=== PATIENT | female | born 1935 | race Caucasian/White ===

== ENCOUNTER → 2016-07-24 | Outpatient (CLI) | payer MEDICARE ==
--- NOTE | 2016-07-24 17:32 | REP ---
Lumbar spine five views: Comparison 12/15/2014. Vertebral body heights and alignment are normal. There is moderate degenerative disc disease at L1-2 and L3-4. There is no spondylolysis or spondylolisthesis. There is moderate facet osteoarthritis of the lower lumbar levels. The pedicles and sacroiliac articulations are unremarkable. There is a large mottled calcification superimposed over the left iliac wing. By CT (07/17/2013) this is an injection granuloma in the left buttocks. Signed by Quinton Oliva MD 07/24/2016 05:24 P
== END ==
LOC: M WUC 15:45
PROVIDERS: ATTEND Physician Assistant
DX: M54.5 Low back pain (principal)

== ENCOUNTER → 2016-09-26 | Outpatient (REF) | payer MEDICARE ==
[2016-09-28 09:55] LABS: VITAMIN B12 LEVEL 253 PG/ML (247-911)
[2016-09-28 14:16] LABS: Lyme Disease IgG/IgM Antibodie <0.91 ISR (0.00-0.90); Lyme Disease IgM Ab Quantitati <0.80 index (0.00-0.79)
== END ==
LOC: M LAB REF 16:54
PROVIDERS: ATTEND Nurse Practitioner Family
DX: M79.1 Myalgia (principal); L29.8 Other pruritus; R53.83 Other fatigue

== ENCOUNTER → 2016-10-18 | Outpatient (CLI) | payer MEDICARE ==
[~2016-10-18] MED LIST: ALEV220C2 PO; AMBI5TAB PO; LEVO100T5 PO; MYRB25TA PO; ROPI0.25 PO; VITA200015 PO
[2016-10-18 12:05] LABS: MEAN CORPUSCULAR HEMOGLOBIN 29.5 pg (27.0-33.0); MEAN CORPUSCULAR HGB CONC 32.6 g/dl (32.0-36.5); MEAN CORPUSCULAR VOLUME 90.6 fl (80.0-96.0); RED CELL DISTRIBUTION WIDTH 12.5 % (11.5-14.5); WHITE BLOOD COUNT 7.8 K/mm3 (4.0-10.0)
[2016-10-18 12:15] LABS: INR 0.99
[2016-10-18 12:30] LABS: ALBUMIN 4.2 GM/DL (3.2-5.2); ALKALINE PHOSPHATASE 48 U/L (45-117); ALT/SGPT 40 U/L (12-78); ANION GAP 8 MEQ/L (8-16); AST/SGOT 26 U/L (15-37); BILIRUBIN,TOTAL 0.8 MG/DL (0.2-1.0); BLOOD UREA NITROGEN 23 MG/DL (7-18); CALCIUM LEVEL 9.5 MG/DL (8.8-10.2); CARBON DIOXIDE LEVEL 27 MEQ/L (21-32); CHLORIDE LEVEL 107 MEQ/L (98-107); GLOMERULAR FILTRATION RATE > 60.0 (>39); GLUCOSE, FASTING 118 MG/DL (83-110); POTASSIUM SERUM 4.3 MEQ/L (3.5-5.1); SODIUM LEVEL 142 MEQ/L (136-145); TOTAL PROTEIN 7.2 GM/DL (6.4-8.2)
--- NOTE | 2016-10-18 12:39 | REP ---
PA and lateral chest: Comparison is a 2014. The lung sanchez are clear. The cardiac size is normal The nick, mediastinum, and bony thorax are unremarkable. Impression: Negative PA and lateral chest. There is no interval change. Signed by Quinton Oliva MD 10/18/2016 12:31 P
--- NOTE | 2016-10-18 18:59 | ECGEPIP ---
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
== END ==
LOC: M ADMPAT 09:17
PROVIDERS: ATTEND Orthopaedic Surgery
DX: Z01.818 Encounter for other preprocedural examination (principal); M17.11 Unilateral primary osteoarthritis, right knee; Z79.899 Other long term (current) drug therapy

== ENCOUNTER → 2016-10-28 | Outpatient (CLI) | payer MEDICARE ==
--- NOTE | 2016-11-01 09:21 | SLEEPCENT ---
DATE OF STUDY: 10/28/2016 ORDERING PROVIDER: OUSMANE Boyer Nocturnal polysomnography was performed for evaluation of sleep apnea syndrome symptoms in this patient with nonrestorative sleep. 7 hours and 15 minutes of data were reviewed. There were 268 minutes of sleep identified. Sleep latency was mildly prolonged at 57 minutes. Rapid eye movement (REM) latency was prolonged at 183 minutes. Sleep architecture showed poor progression and fragmentation. Two REM periods were appreciated. The overall sleep efficiency was 63%. The patient's electrocardiogram (EKG) showed a sinus rhythm with an average heart rate of 64 beats per minute. Electroencephalogram (EEG) showed normal waveforms sleep and awake. There were 74 respiratory events identified of 10 seconds in duration or greater for an apnea-hypopnea index at 16.5. The events were primarily obstructive. Occasional mixed and central apneas were noted. Events were not exclusive to sleep stage nor body posture. Arousals from respiratory events occurred 5.4 times per hour. Oxygen desaturations were seen into the 80s. There was some limb activity, but arousals from limb events were few. Remaining measures of sleep physiology were normal. IMPRESSION: Obstructive sleep apnea syndrome (G47.33). Apnea-hypopnea index 16.5. RECOMMENDATION: The patient should be encouraged to return to the sleep disorder center for pressure therapy. In the interim, alcohol and sedative avoidance should be practiced and caution exercised during the operation of motor vehicles.
== END ==
LOC: M SLEEP 19:29
PROVIDERS: ATTEND Nurse Practitioner Adult Health
DX: G47.30 Sleep apnea, unspecified (principal)

== ENCOUNTER → 2016-11-09 | Outpatient (CLI) | payer MEDICARE ==
--- NOTE | 2016-11-11 05:07 | SLEEPCENT ---
DATE OF PROCEDURE: 11/09/2016 ORDERED BY: Kathy Siddiqui NP Nocturnal polysomnography was performed for the titration of pressure therapy in this patient with obstructive sleep apnea syndrome, apnea hypopnea index 16.5. For testing, the patient was fit with a ResMed Mirage Quattro full face mask of small size. 4 cm of water pressure were applied to the circuit and the lights were extinguished. 7 hours and 54 minutes of data were reviewed. There were 144 minutes of sleep identified. Sleep latency was prolonged at 215 minutes. Rapid eye movement (REM) latency was further prolonged at 225 minutes. Sleep architecture was poor with 1 REM period late in the study. Overall sleep efficiency was only 31% due to periods of wake after sleep onset. The patient's electrocardiogram (EKG) showed a sinus rhythm with an average heart rate of 70 beats per minute. Electroencephalogram (EEG) showed normal waveforms for awake and sleep. Respiratory events were found best palliated during this test with a pressure therapy of 11 cm of water with which the patient slept through REM without respiratory event or oxygen desaturation late in the study. Some limb movements appreciated early resolved and oxygen saturations were good with CPAP at 11. IMPRESSION: Obstructive sleep apnea syndrome (G47.33). RECOMMENDATION: Nightly use of pressure therapy 11 cm of water.
== END ==
LOC: M SLEEP 19:29
PROVIDERS: ATTEND Nurse Practitioner Adult Health
DX: G47.33 Obstructive sleep apnea (adult) (pediatric) (principal)

== ENCOUNTER → 2017-01-24 | Outpatient (CLI) | payer MEDICARE ==
[~2017-01-24] MED LIST changes: +AUGM500T34 PO; +COUM; +COUM10TA PO; +COUM2.5T17 PO; +MORP15TASA PO; +PERC5TAB12 PO
[2017-01-24 10:56] LABS: MEAN CORPUSCULAR HEMOGLOBIN 30.8 pg (27.0-33.0); MEAN CORPUSCULAR HGB CONC 33.8 g/dl (32.0-36.5); MEAN CORPUSCULAR VOLUME 91.2 fl (80.0-96.0); RED CELL DISTRIBUTION WIDTH 13.2 % (11.5-14.5); WHITE BLOOD COUNT 7.2 K/mm3 (4.0-10.0)
[2017-01-24 11:22] LABS: INR 0.88
[2017-01-24 11:37] LABS: ALBUMIN 3.9 GM/DL (3.2-5.2); ALBUMIN/GLOBULIN RATIO 1.18 (1.00-1.93); ALKALINE PHOSPHATASE 48 U/L (45-117); ALT/SGPT 34 U/L (12-78); ANION GAP 9 MEQ/L (8-16); AST/SGOT 14 U/L (15-37); BILIRUBIN,TOTAL 0.7 MG/DL (0.2-1.0); BLOOD UREA NITROGEN 19 MG/DL (7-18); CALCIUM LEVEL 9.3 MG/DL (8.8-10.2); CARBON DIOXIDE LEVEL 27 MEQ/L (21-32); CHLORIDE LEVEL 107 MEQ/L (98-107); GLOMERULAR FILTRATION RATE > 60.0 (>32); GLUCOSE, FASTING 103 MG/DL (83-110); POTASSIUM SERUM 4.4 MEQ/L (3.5-5.1); SODIUM LEVEL 143 MEQ/L (136-145); TOTAL PROTEIN 7.2 GM/DL (6.4-8.2)
--- NOTE | 2017-01-24 12:51 | REP ---
PA and lateral chest: Comparison is 10/18/2016. The lung sanchez are clear. The cardiac size is normal The nick, mediastinum, and bony thorax are unremarkable. Impression: Negative PA and lateral chest. There is no interval change. Signed by Quinton Oliva MD 01/24/2017 12:42 P
--- NOTE | 2017-01-24 21:15 | ECGEPIP ---
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
== END ==
LOC: M ADMPAT 09:40
PROVIDERS: ATTEND Orthopaedic Surgery
DX: Z01.818 Encounter for other preprocedural examination (principal); M17.11 Unilateral primary osteoarthritis, right knee; Z79.899 Other long term (current) drug therapy

== ENCOUNTER 2017-02-06 05:46 | Inpatient (IN) | payer MEDICARE ==
[2017-01-24 09:57] VITALS: BP 141/68
--- NOTE | 2017-02-02 14:24 | HPE ---
DATE OF ADMISSION: 02/06/2017 ATTENDING PHYSICIAN: Dr. Bernard CHIEF COMPLAINT: Right knee pain and stiffness. HISTORY: This is a pleasant 81-year-old female patient with progressively worsening right knee pain and stiffness. She has failed to improve with conservative management. She has elected for surgery for continued right symptoms. She has pain with weightbearing activities and activities of daily living. X-rays notable for end-stage degenerative changes of the right knee. Medical optimization pending with Dr. Aguilar's office. ALLERGIES: - ERYTHROMYCIN - TETRACYCLINE - PNEUMOVAX CURRENT MEDICATIONS: - Myrbetriq 25 mg 1 tablet once per day - Requip 1 mg 1 tablet at bedtime - ropinirole 0.5 mg 1 tablet in the p.m. - vitamin D [id number] She also takes intermittently Aleve and she was counseled to discontinue that medication. She does use a sleep apnea machine. She was told to bring that with her to the hospital. MEDICAL CONDITIONS (Includes): 1. Irritable bowel syndrome. 2. Hypothyroidism. 3, Restless leg syndrome. 4. Anxiety. 5. History of cervical cancer. 6. Sleep apnea. 7. Symptomatic osteoarthritis of both knees. PAST SURGICAL HISTORY (Includes): 1. Dilation and curettage (D and C). 2. Hernia repair. 3. Trigger finger release. 4. Total hysterectomy. 5. Foot surgery. SOCIAL HISTORY: She does not smoke. She occasionally uses alcohol. FAMILY HISTORY: Noncontributory. REVIEW OF SYSTEMS: Denies fever or chills. Denies chest pain, shortness breath or cough. Denies difficulty breathing. Denies abdominal pain. Denies nausea or vomiting. Denies difficulty breathing. Denies recent upper respiratory infection (URI) or urinary tract infection (UTI) symptoms. Denies nausea or vomiting. Has persistent pain in the right knee with weightbearing activities. PHYSICAL EXAMINATION: Today reveals a well-nourished, well-developed, alert female patient. She walks with a slight limping gait favoring her right side. She uses a cane for ambulation. Exam of the right knee reveals the skin to be intact. No erythema, edema or ecchymosis. Irritability on knee range of motion, but near full range of motion. Tenderness mainly medially. No irritability with hip range of motion. It is a well-perfused right lower extremity. Neck is supple without adenopathy or jugular venous distention (JVD). Lungs are clear to auscultation without rales or wheeze. Heart: Regular rate and rhythm. Abdomen: Bowel sounds are present. Vital Signs: Pulse 92, blood pressure 148/78, height 5 feet 6 inches, weight 244 pounds, temperature 97.6. IMPRESSION: Symptomatic osteoarthritis of the right knee. LABORATORY DATA: Sed rate is 11. Urinalysis within normal limits. Urine culture no clinically significant growth. Nasal culture normal [facility]. PT 12.0, INR 0.88. Glucose 103, BUN 19, creatinine 0.9, sodium 143, potassium 4.4, WBC count 7.2, RBC count 4.6, hemoglobin 14.2, hematocrit 42.2. EKG sinus rhythm. Chest x-ray no acute cardiopulmonary disease process noted. PLAN: She has consented for a right total knee arthroplasty by Dr. Bernard. CARLOS
[~2017-02-06] VITALS: Ht 165.1 cm; Wt 108.9 kg
[~2017-02-06 05:46] MED LIST changes: -AUGM500T34 PO; -COUM; -COUM10TA PO; -COUM2.5T17 PO; -MORP15TASA PO; -PERC5TAB12 PO
[2017-02-06] MEDS ORDERED: PERCOCET 5MG/325MG TAB PO ONE (06:00)
[2017-02-06] MEDS ORDERED: LR 1,000 ML IV SCH ×2 (06:00→11:15)
[2017-02-06] MEDS ORDERED: BUPIVACAINE/EPIN 0.25% 30 ML VIAL As Ordered ONE (06:00)
[2017-02-06] MEDS ORDERED: PREGABALIN 75 MG CAP(LYRICA) PO ONE (06:00)
[2017-02-06] MEDS ORDERED: TRANEXAMIC ACID 100 MG/ML 10ML VIAL As Ordered ONE (06:01)
[2017-02-06] MEDS ORDERED: BUPIVACAINE HCL 0.25% 30 ML VIAL As Ordered ONE (06:01)
[2017-02-06] MEDS ORDERED: EPINEPHrine INJ 1 MG/ML 1ML AMP As Ordered ONE (06:01)
[2017-02-06] MEDS ORDERED: ceFAZolin 1GM INJ (J0690) As Ordered ONE (06:01)
[2017-02-06] MEDS ORDERED: COUM (06:23)
[2017-02-06] MEDS ORDERED: COUM10TA PO (06:23)
[2017-02-06] MEDS ORDERED: fentaNYL 100 MCG/2 ML INJECTION (J3010) As Ordered ONE (07:19)
[2017-02-06] MEDS ORDERED: LIDOCAINE 2% INJ 100 MG/5 ML SDV (FOR ANES.) As Ordered ONE (07:19)
[2017-02-06] MEDS ORDERED: MIDAZOLAM INJ 2 MG/2 ML VIAL (J2250) As Ordered ONE ×2 (07:19→08:59)
[2017-02-06] MEDS ORDERED: PROPOFOL 200 MG/20 ML VIAL As Ordered ONE (07:19)
[2017-02-06] MEDS ORDERED: fentaNYL 100 MCG/2 ML INJECTION (J3010) IV ONE (09:00)
[2017-02-06] MEDS: amLODIPine 5 MG TAB PO SCH (09:00)
[2017-02-06] MEDS ORDERED: MIDAZOLAM INJ 2 MG/2 ML VIAL (J2250) IV ONE (09:00)
[2017-02-06] MEDS ORDERED: BUPIVACAINE LIPOSOME/PF 1.3% 20 ML VIAL (13.3MG/ML)(EXPAREL) As Ordered ONE (09:11)
[2017-02-06] MEDS ORDERED: dexameTHASONE 4 MG/ML 1ML VIAL (J1100) As Ordered ONE (09:20)
[2017-02-06] MEDS ORDERED: ONDANSETRON 4MG/2ML VIAL (J2405) As Ordered ONE (09:20)
[2017-02-06] MEDS ORDERED: GLYCOPYRROLATE INJ 0.2 MG/ML 2 ML VIAL As Ordered ONE (09:23)
[2017-02-06] MEDS ORDERED: ePHEDrine SULFATE 25 MG/5 ML(5MG/ML) SYRINGE As Ordered ONE (09:23)
[2017-02-06] MEDS ORDERED: PHENYLephrine HCL 500 MCG/5 ML (100MCG/ML) SYRINGE (J2370) As Ordered ONE (09:23)
[2017-02-06] MEDS ORDERED: ROPIvacaine 0.5% 30 ML INJECTION (J2795) ONE (10:42)
[2017-02-06] MEDS ORDERED: ONDANSETRON 4MG/2ML VIAL (J2405) IV PRN ×2 (11:15→11:30)
[2017-02-06] MEDS ORDERED: ACETAMINOPHEN TAB 650MG DOSE (2X325MG) PO PRN (11:15)
[2017-02-06] MEDS ORDERED: FLEET ENEMA PR PRN (11:15)
[2017-02-06 11:26] LABS: BASO % 0.6 % (0.0-1.0); EOS # 0.2 K/mm3 (0.0-0.50); EOS % 3.1 % (0.0-3.0); LARGE UNSTAINED CELL # 0.1 K/mm3 (0.0-0.4); LARGE UNSTAINED CELL % 1.1 % (0.0-4.0); LYMPH # 1.3 K/mm3 (1.5-4.5); LYMPH % 17.6 % (24.0-44.0); MEAN CORPUSCULAR HEMOGLOBIN 30.3 pg (27.0-33.0); MEAN CORPUSCULAR HGB CONC 33.4 g/dl (32.0-36.5); MEAN CORPUSCULAR VOLUME 90.7 fl (80.0-96.0); MONO # 0.2 K/mm3 (0.0-0.8); MONO % 2.5 % (0.0-5.0); NEUTROPHILS # 5.3 K/mm3 (1.8-7.7); PLATELET COUNT, AUTOMATED 204 k/mm3 (150-450); RED CELL DISTRIBUTION WIDTH 13.2 % (11.5-14.5)
[2017-02-06] MEDS ORDERED: CYCLOBENZAPRINE 5MG TABLET PO PRN (11:30)
[2017-02-06] MEDS: PERCOCET 5MG/325MG TAB PO PRN ×3 (11:46→21:06)
[2017-02-06 12:28] LABS: ALBUMIN 3.6 GM/DL (3.2-5.2); ALBUMIN/GLOBULIN RATIO 1.09 (1.00-1.93); ALKALINE PHOSPHATASE 43 U/L (45-117); ALT/SGPT 31 U/L (12-78); ANION GAP 9 MEQ/L (8-16); AST/SGOT 19 U/L (15-37); BILIRUBIN,TOTAL 0.4 MG/DL (0.2-1.0); BLOOD UREA NITROGEN 20 MG/DL (7-18); CALCIUM LEVEL 8.7 MG/DL (8.8-10.2); CARBON DIOXIDE LEVEL 26 MEQ/L (21-32); CHLORIDE LEVEL 108 MEQ/L (98-107); GLOMERULAR FILTRATION RATE > 60.0 (>32); GLUCOSE, FASTING 136 MG/DL (83-110); MAGNESIUM LEVEL 2.3 MG/DL (1.8-2.4); PHOSPHORUS LEVEL 2.7 MG/DL (2.5-4.9); POTASSIUM SERUM 4.3 MEQ/L (3.5-5.1); SODIUM LEVEL 143 MEQ/L (136-145); TOTAL PROTEIN 6.9 GM/DL (6.4-8.2)
[2017-02-06] MEDS: fentaNYL 100 MCG/2 ML INJECTION (J3010) IV PRN ×2 (12:32→12:37)
[2017-02-06] MEDS ORDERED: HYDROmorphone HCL 1 MG/ML SYRINGE (J1170) As Ordered ONE ×2 (12:43→13:22)
[2017-02-06] MEDS: HYDROmorphone HCL 1 MG/ML SYRINGE (J1170) IV PRN ×11 (12:45→16:55)
[2017-02-06] MEDS ORDERED: HYDROmorphone HCL 1 MG/ML SYRINGE (J1170) IV PRN (14:00)
[2017-02-06 14:45] VITALS: BP 158/83
[2017-02-06 15:15] VITALS: BP 143/74
[2017-02-06 16:11] VITALS: BP 178/100
[2017-02-06] MEDS ORDERED: amLODIPine 5 MG TAB PO ONE (16:30)
[2017-02-06] MEDS ORDERED: WARFARIN SOD 1 MG TAB PO ONE (17:00)
[2017-02-06] MEDS ORDERED: WARFARIN SOD 2.5 MG TAB PO ONE (17:00)
--- NOTE | 2017-02-06 17:00 | CR.PDOC ---
[facility] Consultation Consultation DATE OF CONSULTATION: PRIMARY CARE PHYSICIAN: Dr. Arleth Aguilar REASON FOR CONSULTATION/CHIEF COMPLAINT: Presented to the [facility] for an elective Right knee replacement. HISTORY OF PRESENT ILLNESS: Patient is an 81 year old female with a PMHx of Irritable bowel syndrome, Hypothyroidism, Restless leg syndrome, Anxiety, History of Uterine CA (s/p Hysterectomy and bilateral salpingopherectomy), NIMA on CPAP and symptomatic osteoarthritis of her knees. Patient has been experiencing worsening knee pain bilaterally (R>L) and has failed medical therapy. She was scheduled for an elective orthopedic procedure to replace her knee with Dr. Hooker. She has received medical clearance from her primary care physician, Dr. Aguilar on 02/02/17. She was seen after surgery, she notes that she is having pain on her right knee after surgery. Reports the pain as a 9/10, aching, continuous pain. She denies any chest pain, shortness of breath, palpitations, nausea, vomiting, abdominal pain, constipation, diarrhea or urinary symptoms. ALLERGIES: Please see below. HOME MEDICATIONS: Please see below. PAST MEDICAL HISTORY: Irritable bowel syndrome, Hypothyroidism, Restless leg syndrome, Anxiety, History of Uterine CA (s/p Hysterectomy and bilateral salpinopherectomy), NIMA on CPAP and symptomatic osteoarthritis of her knees PAST SURGICAL HISTORY: Dilation and Curettage Right inguinal hernia repair 1970s Trigger finger release of right middle finger Total hysterectomy and bilateral salpingopherectomy Bilateral foot surgery (removal of bunion) FAMILY HISTORY: - Non-contributory SOCIAL HISTORY: - Denies the use of illicit drugs; Social alcohol use; Quit smoker >40 years prior, smoker of >20 years at 0.5-1.0 PPD - Denies recent travel or sick contacts - Lives alone - 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; 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 [employer] REVIEW OF SYSTEMS: Constitutional: Denies weight loss, change in appetite, or recent trauma Eyes: No visual changes or eye pain Ears, Nose, Throat: Denies nose bleeds, or difficulty swallowing Cardiovascular: Denies chest pain, sweating, or orthopnea Respiratory: Denies cough, wheezing, or shortness of breath GI: Adama nausea, vomiting, abdominal pain, diarrhea or constipation : Denies pain with urination or frequency Musculoskeletal: Reports bilateral knee pain Neuro / Psych: Denies muscle weakness or sensory loss Skin: No skin rashes noted All other review of systems negative; otherwise stated in history of present illness PHYSICAL EXAMINATION: - Vitals: BP 178/100, HR 91, RR 14, Sat 95%RA, Temp 97.5F - General: Lying in bed, No acute distress, Speaking in full sentences, AAOx3 - HEENT: NC, AT, PERRLA, EOMI - CVS: RRR, +S1S2, - Lungs: Fair air entry bilaterally, No appreciable wheezing / rales / rhonchi - Abdomen: Soft, Non-distended, Non-tender, + Bowel sounds x 4 - Extremities: + PPx4, No lower extremity edema, No calf tenderness - Neuro: No focal motor or sensory deficit - Skin: No visible rashes LABORATORY DATA: Please see below. ASSESSMENT/PLAN: Right knee arthroplasty - Failed outpatient management with medical therapy - History of severe osteoarthritis of bilateral knees (R>L) - Physical therapy, pain management and anticoagulation as per Surgery Hypertension - Possibly 2/2 pain - No history as an outpatient - Reported to have SBPs of 130s as an outpatient - Started Amlodipine 5mg daily Irritable bowel syndrome - Not on any medications Hypothyroidism - c/w Levothyroxine Restless leg syndrome - c/w Ropinarole Generalized anxiety disorder - c/w Lyrica History of Uterine CA - s/p Hysterectomy and bilateral salpingopherectomy NIMA on CPAP - allow home CPAP use DVT prophylaxis - As per surgical team Vital Signs/I&O Vital Signs Date Time Temp Pulse Resp B/P (MAP) Pulse Ox O2 Delivery O2 Flow Rate FiO2 02/06/17 16:55 20 02/06/17 16:54 85 168/89 02/06/17 16:11 97.5 95 Nasal Cannula 2.0 Laboratory Data Labs 24H Laboratory Tests 2 02/06/17 11:11: White Blood Count 7.0, Red Blood Count 4.44, Hemoglobin 13.4, Hematocrit 40.3, Mean Corpuscular Volume 90.7, Mean Corpuscular Hemoglobin 30.3, Mean Corpuscular Hemoglobin Concent 33.4, Red Cell Distribution Width 13.2, Platelet Count 204, Neutrophils (%) (Auto) 75.0H, Lymphocytes (%) (Auto) 17.6L, Monocytes (%) (Auto) 2.5, Eosinophils (%) (Auto) 3.1H, Basophils (%) (Auto) 0.6 , Neutrophils # (Auto) 5.3, Lymphocytes # (Auto) 1.3L, Monocytes # (Auto) 0.2, Eosinophils # (Auto) 0.2, Basophils # (Auto) 0.0, Large Unclassified Cells % 1.1 , Large Unclassified Cells # 0.1 02/06/17 11:54: Anion Gap 9, Glomerular Filtration Rate > 60.0, Blood Urea Nitrogen 20H, Creatinine 0.90, Sodium Level 143, Potassium Level 4.3, Chloride Level 108H, Carbon Dioxide Level 26, Calcium Level 8.7L, Phosphorus Level 2.7, Aspartate Amino Transf (AST/SGOT) 19, Alanine Aminotransferase (ALT/SGPT) 31, Alkaline Phosphatase 43L, Total Bilirubin 0.4, Total Protein 6.9, Albumin 3.6, Magnesium Level 2.3, Albumin/Globulin Ratio 1.09 CBC/BMP Laboratory Tests 02/06/17 11:11 Red Blood Count 4.44, Mean Corpuscular Volume 90.7, Mean Corpuscular Hemoglobin 30.3, Mean Corpuscular Hemoglobin Concent 33.4, Red Cell Distribution Width 13.2 , Neutrophils (%) (Auto) 75.0 H, Lymphocytes (%) (Auto) 17.6 L, Monocytes (%) ( Auto) 2.5, Eosinophils (%) (Auto) 3.1 H, Basophils (%) (Auto) 0.6, Neutrophils # (Auto) 5.3, Lymphocytes # (Auto) 1.3 L, Monocytes # (Auto) 0.2, Eosinophils # (Auto) 0.2, Basophils # (Auto) 0.0 02/06/17 11:54 Calcium Level 8.7 L, Phosphorus Level 2.7, Aspartate Amino Transf (AST/SGOT) 19 , Alanine Aminotransferase (ALT/SGPT) 31, Alkaline Phosphatase 43 L, Total Bilirubin 0.4, Total Protein 6.9, Albumin 3.6 Allergies Coded Allergies: Pneumococcal Polysaccharides (Verified Allergy, Mild, 10/18/16) Erythromycin (Unverified Allergy, Unknown, ITCHING, 10/18/16) Propoxyphene (Unverified Allergy, Unknown, PASSES OUT, 10/18/16) Tetracyclines (Unverified Allergy, Unknown, THROAT EDEMA, 10/18/16) Home Medications Scheduled Levothyroxine Sodium (Synthroid) 100 Mcg Tab, 112 MCG PO DAILY, (Reported) Mirabegron Base (Myrbetriq) 25 Mg Tab, 25 MG PO DAILY, (Reported) Ropinirole Hydrochloride (Ropinirole HCl) 0.25 Mg Tab, Unknown Dose PO QHS, ( Reported) Scheduled PRN (Aleve) 220 Mg Cap, 440 MG PO PRN PRN for PAIN, (Reported) Miscellaneous Medications Warfarin Sod (Coumadin) 10 Mg Tab, 10 MG PO, (Reported) LISSY OVIEDO MD Feb 06, 2017 17:00
[2017-02-06 17:15] VITALS: BP 164/82
[2017-02-06 18:15] VITALS: BP 180/79
[2017-02-06] MEDS: rOPINIRole 0.25 MG TAB(REQUIP) PO SCH (21:07)
[2017-02-06] MEDS: PREGABALIN 50 MG CAP (LYRICA) PO SCH (21:07)
[2017-02-06 22:00] VITALS: BP 191/85
[2017-02-07] MEDS: PERCOCET 5MG/325MG TAB PO PRN ×6 (00:30→19:47)
[2017-02-07] MEDS: LEVOTHYROXINE 112MCG TABLET (0.112MG) PO SCH (05:06)
[2017-02-07 06:00] VITALS: BP 164/80
[2017-02-07 06:56] LABS: EOS # 0.1 K/mm3 (0.0-0.50); EOS % 0.4 % (0.0-3.0); LARGE UNSTAINED CELL # 0.1 K/mm3 (0.0-0.4); LARGE UNSTAINED CELL % 0.9 % (0.0-4.0); LYMPH # 1.4 K/mm3 (1.5-4.5); LYMPH % 9.2 % (24.0-44.0); MEAN CORPUSCULAR HGB CONC 33.2 g/dl (32.0-36.5); MEAN CORPUSCULAR VOLUME 90.2 fl (80.0-96.0); MONO % 7.5 % (0.0-5.0); PLATELET COUNT, AUTOMATED 212 k/mm3 (150-450); RED CELL DISTRIBUTION WIDTH 13.1 % (11.5-14.5); WHITE BLOOD COUNT 13.4 K/mm3 (4.0-10.0)
[2017-02-07 06:59] LABS: INR 1.1
[2017-02-07 07:19] LABS: ALBUMIN 3.1 GM/DL (3.2-5.2); ALBUMIN/GLOBULIN RATIO 0.89 (1.00-1.93); BILIRUBIN,TOTAL 0.6 MG/DL (0.2-1.0); CALCIUM LEVEL 8.8 MG/DL (8.8-10.2); CREATININE FOR GFR 0.96 MG/DL (0.55-1.02); GLOMERULAR FILTRATION RATE 59.5 (>32); MAGNESIUM LEVEL 2.2 MG/DL (1.8-2.4); POTASSIUM SERUM 4.5 MEQ/L (3.5-5.1); TOTAL PROTEIN 6.6 GM/DL (6.4-8.2)
--- NOTE | 2017-02-07 08:07 | IPNPDOC ---
Text Note Date of Service The patient was seen on 02/07/17. NOTE Subjective: Patient is an 81 year old female with a PMHx of Irritable bowel syndrome, Hypothyroidism, Restless leg syndrome, Anxiety, History of Uterine CA (s/p Hysterectomy and bilateral salpingopherectomy), NIMA on CPAP and symptomatic osteoarthritis of her knees. Patient has been experiencing worsening knee pain bilaterally (R>L) and has failed medical therapy. She was scheduled for an elective orthopedic procedure to replace her knee with Dr. Bernard. She has received medical clearance from her primary care physician, Dr. Aguilar on 02/02/17. POD #1, no medical complaints this morning. Is curious regarding her discharge and home safety as she states she lives alone. PHYSICAL EXAMINATION: - General: Lying in bed, No acute distress, Speaking in full sentences, AAOx3 - HEENT: NC, AT, PERRLA, EOMI - CVS: RRR, +S1S2, - Lungs: Fair air entry bilaterally, No appreciable wheezing / rales / rhonchi - Abdomen: Soft, Non-distended, Non-tender, + Bowel sounds x 4 - Extremities: + PPx4, No lower extremity edema, No calf tenderness - Neuro: No focal motor or sensory deficit - Skin: No visible rashes LABORATORY DATA: Please see below. ASSESSMENT/PLAN: Right knee arthroplasty - POD #1 - Failed outpatient management with medical therapy - History of severe osteoarthritis of bilateral knees (R>L) - Physical therapy, pain management and anticoagulation as per primary team - Surgery - leukocytosis likely reactive - will continue to monitor - no obvious s/s of infection Hypertension - Possibly 2/2 pain - No history as an outpatient - Reported to have SBPs of 130s as an outpatient - Started Amlodipine 5mg daily Irritable bowel syndrome - Not on any medications Hypothyroidism - c/w Levothyroxine Restless leg syndrome - c/w Ropinarole Generalized anxiety disorder - c/w Lyrica History of Uterine CA - s/p Hysterectomy and bilateral salpingopherectomy NIMA on CPAP - allow home CPAP use DVT prophylaxis - As per surgical team VS,Fishbone, I+O VS, Fishbone, I+O Laboratory Tests 02/06/17 11:11 Red Blood Count 4.44, Mean Corpuscular Volume 90.7, Mean Corpuscular Hemoglobin 30.3, Mean Corpuscular Hemoglobin Concent 33.4, Red Cell Distribution Width 13.2 , Neutrophils (%) (Auto) 75.0 H, Lymphocytes (%) (Auto) 17.6 L, Monocytes (%) ( Auto) 2.5, Eosinophils (%) (Auto) 3.1 H, Basophils (%) (Auto) 0.6, Neutrophils # (Auto) 5.3, Lymphocytes # (Auto) 1.3 L, Monocytes # (Auto) 0.2, Eosinophils # (Auto) 0.2, Basophils # (Auto) 0.0 02/06/17 11:54 Calcium Level 8.7 L, Phosphorus Level 2.7, Aspartate Amino Transf (AST/SGOT) 19 , Alanine Aminotransferase (ALT/SGPT) 31, Alkaline Phosphatase 43 L, Total Bilirubin 0.4, Total Protein 6.9, Albumin 3.6 02/07/17 06:39 Red Blood Count 4.20, Mean Corpuscular Volume 90.2, Mean Corpuscular Hemoglobin 30.0, Mean Corpuscular Hemoglobin Concent 33.2, Red Cell Distribution Width 13.1 , Neutrophils (%) (Auto) 82.0 H, Lymphocytes (%) (Auto) 9.2 L, Monocytes (%) ( Auto) 7.5 H, Eosinophils (%) (Auto) 0.4, Basophils (%) (Auto) 0.0, Neutrophils # (Auto) 11.0 H, Lymphocytes # (Auto) 1.4 L, Monocytes # (Auto) 1.0 H, Eosinophils # (Auto) 0.1, Basophils # (Auto) 0.0, Calcium Level 8.8, Aspartate Amino Transf (AST/SGOT) 16, Alanine Aminotransferase (ALT/SGPT) 26, Alkaline Phosphatase 39 L, Total Bilirubin 0.6, Total Protein 6.6, Albumin 3.1 L Vital Signs Date Time Temp Pulse Resp B/P (MAP) Pulse Ox O2 Delivery O2 Flow Rate FiO2 02/07/17 06:12 16 02/07/17 06:00 97.7 81 164/80 (108) 99 Nasal Cannula 2.0 I&O- Last 24 Hours up to 6 AM 02/07/17 06:00 Intake Total 2250 ml Output Total 2700 ml Balance -450 ml CLAUDIO JIMENEZ MD Feb 07, 2017 08:07
--- NOTE | 2017-02-07 09:09 | RO ---
DATE OF PROCEDURE: 02/06/2017 PREOPERATIVE DIAGNOSIS: Right knee osteoarthritis. POSTOPERATIVE DIAGNOSIS: Right knee osteoarthritis. PROCEDURE PERFORMED: Right total knee replacement, posterior stabilized. SURGEON: Dr. Joel Bernard. HALL DIRECTOR: Rodolfo Hawkins PA-C ANESTHESIA: Spinal with femoral block. ESTIMATED BLOOD LOSS: Less than 60 mL replaced with Crystalloid. COMPLICATIONS: None. COMPONENTS USED: Include DePuy PFC posterior stabilized component, size 3 femoral component, size 12 tibial posterior stabilized polyethylene, size 3 tibial tray, size 32 mm patellar button and the appropriate bone cement. INDICATIONS: Progressive discomfort in the right knee and deformity in an 81-year-old female who has elected for operative intervention. Consent reviewed in detail with the patient including herbie discussion of pathology involved, procedure proposed, alternatives including doing nothing and risks including but not limited to pain, failure, infection, bleeding, blood loss, incomplete relief of symptoms, need for additional surgery and other issues. The patient agrees to proceed. OPERATIVE COURSE: Identified in the holding area, site side verified, brought to the operating room once the block had been accomplished in the holding area. Once anesthesia was administered, the spinal in the recovery room, she was positioned for exposure of the right knee for arthroplasty. Tourniquet was utilized for the procedure. Total tourniquet time 59 minutes at 270 mmHg. Next, once she was sterilely prepped and draped in the usual fashion, time-out was accomplished. The leg was elevated for exsanguination. Tourniquet inflated. Incision outlined with a marking pen infiltrated with 0.25% Marcaine with epinephrine made with a 10 blade, developed down through skin and subcuticular tissues. Medial parapatellar arthrotomy accomplished. Patella everted. Infrapatellar fat pad sacrificed. Medial release accomplished including with a Herrera elevator. Supracondylar area cleared of soft tissue for sizing. Patella everted. Knee placed in the flexed position. Femoral canal opened. Intramedullary guide installed and distal cut made at 10 mm x 5 degrees valgus. This was accomplished by Mr. Hawkins while I positioned and protected soft tissues. Next, once that was accomplished, AP sizing guide utilized for sizing for a size 3 pins, 3 degrees rotation. Next four-in-one cutting guide secured and pinned into place. Next, Homans utilized for soft tissue retraction while I utilized the oscillating saw to make the anterior, posterior and chamfer cuts. Next, these components were removed. Extramedullary tibial alignment jig installed. [place] was adjusted. Alignment based on the second ray and ankle, two clicks on the jig. Next, 4 mm off the medial side. Next, pinned into place. Next, jig removed. Drop tom utilized to verify alignment of the proposed tibial cut. Next, Homans installed. I made the tibial cut using the oscillating saw. Proximal tibia removed. Next, once this was accomplished, sizing blocks were utilized in extension and flexion. 12 mm was appropriate. Next, once this was accomplished, femoral notch cut made using the notch cut guide which was pinned into place. Rasp was utilized to further contour. Trial posterior stabilized femur installed, tamped into place. Next, trial tibial tray with a 12.5 posterior stabilizer was installed. Next, knee was placed through a range of motion. Rotational alignment assessed and marked. Next, patella everted. Posterior patella cut was made. 32 mm button was sized, drilled and trialed, stable through a range of motion. Next, non-trial components removed. Mr. Hawkins stepped to the back table to prepare bone cement while I prepared the knee surfaces using pulse lavage. Next, once they were dried, cement was placed on posterior femoral condyles. I cemented the tibial component into place, tamped into place. Excess cement cleared using curettes. Next, femoral component was then installed cemented in place, tamped into place. Excess cement removed with curettes. Next, non-trial tray was then installed tamped into place with a Nylon impactor and verified to be seated. Next knee was placed in extension over a bump. Patella everted. Patella cemented into place. Excess cement cleared. Next, the cement was allowed to harden while we utilized pulse lavage followed by capital TXA solution as irrigant. TXA solution was allowed to stand for 1 minute. Next, I also instilled an additional proximally 20 mL Exparel liposomal bupivacaine into the soft tissues around the wound for perioperative pain control. Next, again pulse lavaged utilized when cement had cured. Next, we inspected, did not appreciate additional cement to clear. Next the arthrotomy was closed with interrupted as well as a running Stratafix stitch. Next the dermis closed with interrupted stitch and a Pernio dressing was applied. The tourniquet had been deflated at 59 minutes and the patient was moved to recovery room in good condition. For further details, please refer to the medical record. Mr. Hawkins was present to stay in the entirety of the case in capacity of licensed investment sales assistant.
[2017-02-07 10:00] VITALS: BP 132/72
[2017-02-07] MEDS: SENOKOT S TAB PO SCH ×2 (10:13→19:45)
[2017-02-07] MEDS: amLODIPine 5 MG TAB PO SCH (10:13)
[2017-02-07] MEDS: PREGABALIN 50 MG CAP (LYRICA) PO SCH ×2 (10:13→19:45)
[2017-02-07] MEDS: MOM 30ML SUSPENSION UDC PO SCH (10:13)
[2017-02-07] MEDS: MIRALAX *UNIT DOSE* 17GM PACKET PO SCH (10:13)
[2017-02-07 14:00] VITALS: BP 125/83
[2017-02-07] MEDS ORDERED: WARFARIN SOD 5 MG TAB PO ONE (17:00)
--- NOTE | 2017-02-07 17:31 | REP ---
AP AND LATERAL RIGHT KNEE, TWO VIEWS: HISTORY: Knee replacement. COMPARISON: 12/15/2014 The patient is status post right total knee replacement. There is no acute fracture or dislocation. A small amount of subcutaneous air is present in the anterior subcutaneous tissue overlying the distal femur. IMPRESSION: The patient is status post right total knee replacement. There is anatomic alignment. Signed by Mio Connors MD 02/08/2017 08:14 A
[2017-02-07] MEDS: rOPINIRole 0.25 MG TAB(REQUIP) PO SCH (19:44)
[2017-02-07 22:00] VITALS: BP 160/82
[2017-02-07] MEDS: HYDROmorphone HCL 1 MG/ML SYRINGE (J1170) IV PRN (22:04)
[2017-02-08] MEDS: PERCOCET 5MG/325MG TAB PO PRN ×4 (00:33→15:47)
[2017-02-08] MEDS: LEVOTHYROXINE 112MCG TABLET (0.112MG) PO SCH (04:48)
[2017-02-08 06:00] VITALS: BP 159/74
[2017-02-08] MEDS ORDERED: COUM2.5T17 PO (06:53)
[2017-02-08] MEDS ORDERED: PERC5TAB12 PO (06:53)
[2017-02-08 07:28] LABS: BASO % 0.3 % (0.0-1.0); EOS # 0.2 K/mm3 (0.0-0.50); EOS % 2.3 % (0.0-3.0); LARGE UNSTAINED CELL # 0.2 K/mm3 (0.0-0.4); LARGE UNSTAINED CELL % 1.9 % (0.0-4.0); LYMPH # 2.3 K/mm3 (1.5-4.5); LYMPH % 18.8 % (24.0-44.0); MEAN CORPUSCULAR HEMOGLOBIN 29.9 pg (27.0-33.0); MEAN CORPUSCULAR VOLUME 90.5 fl (80.0-96.0); NEUTROPHILS # 7.4 K/mm3 (1.8-7.7); NEUTROPHILS % 67.7 % (36.0-66.0); PLATELET COUNT, AUTOMATED 198 k/mm3 (150-450); RED CELL DISTRIBUTION WIDTH 13.2 % (11.5-14.5); WHITE BLOOD COUNT 10.9 K/mm3 (4.0-10.0)
[2017-02-08 07:37] LABS: INR 2.08
[2017-02-08 07:47] LABS: ALBUMIN/GLOBULIN RATIO 0.86 (1.00-1.93); BILIRUBIN,TOTAL 0.7 MG/DL (0.2-1.0); CALCIUM LEVEL 8.1 MG/DL (8.8-10.2); CREATININE FOR GFR 1.01 MG/DL (0.55-1.02); GLOMERULAR FILTRATION RATE 56.1 (>32); MAGNESIUM LEVEL 2.2 MG/DL (1.8-2.4); TOTAL PROTEIN 6.5 GM/DL (6.4-8.2)
[2017-02-08] MEDS: MIRALAX *UNIT DOSE* 17GM PACKET PO SCH (08:40)
[2017-02-08] MEDS: PREGABALIN 50 MG CAP (LYRICA) PO SCH ×2 (08:40→20:10)
[2017-02-08] MEDS: MOM 30ML SUSPENSION UDC PO SCH (08:40)
[2017-02-08] MEDS: amLODIPine 5 MG TAB PO SCH (08:41)
[2017-02-08] MEDS: MORPHINE 15 MG SA TAB PO SCH ×2 (08:41→20:11)
[2017-02-08] MEDS: SENOKOT S TAB PO SCH ×2 (08:41→20:10)
[2017-02-08 14:00] VITALS: BP 137/76
[2017-02-08] MEDS ORDERED: WARFARIN SOD 7.5 MG TAB PO ONE (17:00)
[2017-02-08] MEDS ORDERED: WARFARIN SOD 2.5 MG TAB PO ONE (17:00)
[2017-02-08] MEDS: rOPINIRole 0.25 MG TAB(REQUIP) PO SCH (20:10)
[2017-02-08 22:00] VITALS: BP 140/82
[2017-02-09] MEDS: PERCOCET 5MG/325MG TAB PO PRN ×3 (00:46→11:18)
[2017-02-09 06:00] VITALS: BP 139/64
[2017-02-09] MEDS: LEVOTHYROXINE 112MCG TABLET (0.112MG) PO SCH (06:29)
[2017-02-09] MEDS ORDERED: COUM2.5T17 PO ×2 (06:40→07:24)
[2017-02-09 06:47] LABS: BASO # 0.1 K/mm3 (0.0-0.2); BASO % 0.8 % (0.0-1.0); EOS # 0.3 K/mm3 (0.0-0.50); EOS % 2.6 % (0.0-3.0); LARGE UNSTAINED CELL # 0.3 K/mm3 (0.0-0.4); LARGE UNSTAINED CELL % 2.5 % (0.0-4.0); LYMPH # 2.3 K/mm3 (1.5-4.5); LYMPH % 19.7 % (24.0-44.0); MEAN CORPUSCULAR HEMOGLOBIN 30.1 pg (27.0-33.0); MEAN CORPUSCULAR VOLUME 91.1 fl (80.0-96.0); MONO # 0.9 K/mm3 (0.0-0.8); MONO % 8.6 % (0.0-5.0); NEUTROPHILS # 6.9 K/mm3 (1.8-7.7); NEUTROPHILS % 65.8 % (36.0-66.0); PLATELET COUNT, AUTOMATED 212 k/mm3 (150-450); RED CELL DISTRIBUTION WIDTH 13.2 % (11.5-14.5); WHITE BLOOD COUNT 10.4 K/mm3 (4.0-10.0)
[2017-02-09 06:53] LABS: INR 1.07
[2017-02-09 07:05] LABS: ALBUMIN 2.7 GM/DL (3.2-5.2); ALBUMIN/GLOBULIN RATIO 0.73 (1.00-1.93); ALKALINE PHOSPHATASE 37 U/L (45-117); ALT/SGPT 23 U/L (12-78); ANION GAP 8 MEQ/L (8-16); AST/SGOT 15 U/L (15-37); BILIRUBIN,TOTAL 0.8 MG/DL (0.2-1.0); BLOOD UREA NITROGEN 14 MG/DL (7-18); CALCIUM LEVEL 8.2 MG/DL (8.8-10.2); CARBON DIOXIDE LEVEL 26 MEQ/L (21-32); CHLORIDE LEVEL 106 MEQ/L (98-107); CREATININE FOR GFR 0.82 MG/DL (0.55-1.02); GLOMERULAR FILTRATION RATE > 60.0 (>32); GLUCOSE, FASTING 108 MG/DL (83-110); MAGNESIUM LEVEL 2.5 MG/DL (1.8-2.4); SODIUM LEVEL 140 MEQ/L (136-145); TOTAL PROTEIN 6.4 GM/DL (6.4-8.2)
[2017-02-09] MEDS ORDERED: PERC5TAB12 PO (07:24)
[2017-02-09] MEDS ORDERED: MORP15TASA PO (07:24)
[2017-02-09] MEDS: MOM 30ML SUSPENSION UDC PO SCH (09:10)
[2017-02-09 09:11] VITALS: BP 139/64
[2017-02-09] MEDS: SENOKOT S TAB PO SCH (09:11)
[2017-02-09] MEDS: amLODIPine 5 MG TAB PO SCH (09:11)
[2017-02-09] MEDS: MORPHINE 15 MG SA TAB PO SCH (09:11)
[2017-02-09] MEDS: MIRALAX *UNIT DOSE* 17GM PACKET PO SCH (09:11)
[2017-02-09] MEDS: PREGABALIN 50 MG CAP (LYRICA) PO SCH (09:11)
[2017-02-09] MEDS ORDERED: WARFARIN SOD 5 MG TAB PO ONE (17:00)
--- NOTE | 2017-02-13 10:47 | DSES ---
DATE OF ADMISSION: 02/06/2017 DATE OF DISCHARGE: 02/09/2017 ATTENDING PHYSICIAN: Dr. Bernard ADMITTING DIAGNOSIS: Osteoarthritis right knee. OTHER DIAGNOSES: 1. Irritable bowel syndrome. 2. Hypothyroidism. 3. Restless leg syndrome. 4. Anxiety. 5. History of cervical cancer. 6. Sleep apnea. DISCHARGE DIAGNOSIS: Osteoarthritis right knee status post right total knee arthroplasty. HISTORY: This is a pleasant, 81-year-old female patient with progressively worsening right knee pain and stiffness. She failed to improve with conservative management. She was admitted for elective knee replacement on the right side. OPERATION PERFORMED: Right total knee arthroplasty. HOSPITAL COURSE: The patient was admitted to the day of surgery and underwent a right total knee arthroplasty, which was uneventful. She did well in the postoperative period, though she did struggle with all the requirements for physical therapy and it was elected due to those continued need for further physical therapy that she will be transferred to a rehab facility. On day of discharge, she was weightbearing as tolerated on the right knee. She will move her right knee to prevent stiffness. She will use adjusted dose Coumadin and thromboembolic deterrent (LELAND) stockings for 30 days postoperatively for deep venous thrombosis (DVT) prophylaxis. She will resume her preoperative medications and diet. She was given instructions to include but not limited to wound monitoring and activity limitations. She will followup in 7-10 days in our office for surgical followup. Please refer to the medical record for further details.
== END 2017-02-09 12:40 | DRG 470 ==
LOC: M OR 05:46 → M MS5PR 14:15
PROVIDERS: ADMIT Orthopaedic Surgery; ATTEND Orthopaedic Surgery
PROC: 0SRC0J9 Replacement of Right Knee Joint with Synthetic Substitute, Cemented, Open Approach (ICD-10-PCS; principal; 2017-02-06 07:30)
DX: M17.11 Unilateral primary osteoarthritis, right knee (principal); G25.81 Restless legs syndrome; F41.1 Generalized anxiety disorder; E03.9 Hypothyroidism, unspecified; I10 Essential (primary) hypertension; G47.33 Obstructive sleep apnea (adult) (pediatric); Z88.1 Allergy status to other antibiotic agents; Z88.7 Allergy status to serum and vaccine; Z79.899 Other long term (current) drug therapy; Z99.89 Dependence on other enabling machines and devices; Z85.41 Personal history of malignant neoplasm of cervix uteri; Z90.710 Acquired absence of both cervix and uterus; Z90.722 Acquired absence of ovaries, bilateral; Z87.891 Personal history of nicotine dependence

== ENCOUNTER 2017-02-10 23:51 | Emergency (ER) | payer MEDICARE ==
[~2017-02-10 23:51] MED LIST changes: -AUGM500T34 PO
[2017-02-11] MEDS ORDERED: PIPERACILLIN/TAZOBACTAM SOD 3.375 GM in D5W MINI-BAG PLUS 50 ML IV ONE (00:30)
[2017-02-11] MEDS ORDERED: METOCLOPRAMIDE INJ 10MG/2ML VIAL (J2765) IV ONE (01:15)
[2017-02-11 01:17] LABS: BASO % 0.4 % (0.0-1.0); EOS # 0.4 K/mm3 (0.0-0.50); EOS % 3.9 % (0.0-3.0); LARGE UNSTAINED CELL # 0.3 K/mm3 (0.0-0.4); LARGE UNSTAINED CELL % 2.6 % (0.0-4.0); LYMPH # 1.4 K/mm3 (1.5-4.5); MEAN CORPUSCULAR HEMOGLOBIN 29.5 pg (27.0-33.0); MEAN CORPUSCULAR HGB CONC 32.8 g/dl (32.0-36.5); MEAN CORPUSCULAR VOLUME 89.9 fl (80.0-96.0); MONO # 0.7 K/mm3 (0.0-0.8); MONO % 7.2 % (0.0-5.0); NEUTROPHILS # 6.7 K/mm3 (1.8-7.7); NEUTROPHILS % 70.8 % (36.0-66.0); PLATELET COUNT, AUTOMATED 259 k/mm3 (150-450); RED CELL DISTRIBUTION WIDTH 12.8 % (11.5-14.5); WHITE BLOOD COUNT 9.5 K/mm3 (4.0-10.0)
[2017-02-11 01:24] LABS: INR 1.07
[2017-02-11 01:34] LABS: ANION GAP 5 MEQ/L (8-16); BLOOD UREA NITROGEN 15 MG/DL (7-18); CALCIUM LEVEL 8.5 MG/DL (8.8-10.2); CARBON DIOXIDE LEVEL 29 MEQ/L (21-32); CHLORIDE LEVEL 104 MEQ/L (98-107); GLOMERULAR FILTRATION RATE > 60.0 (>32); GLUCOSE, FASTING 103 MG/DL (83-110); POTASSIUM SERUM 4.4 MEQ/L (3.5-5.1); SODIUM LEVEL 138 MEQ/L (136-145)
--- NOTE | 2017-02-11 01:40 | REPUSA ---
CLINICAL HISTORY: Edema. COMMENTS: Real time sonography with duplex doppler of the right lower extremity was performed with attention to the major deep venous structures. Evaluation reveals the right common femoral, superficial femoral and popliteal veins to be completely compressible without intraluminal thrombus. There is normal spontaneous phasic flow and augmentation . The greater saphenous/common femoral vein junction is patent. IMPRESSION: No evidence of DVT in right lower extremity. Thank you for your kind referral of this patient.
[2017-02-11] MEDS ORDERED: AUGM500T34 PO (02:09)
[2017-02-11 02:51] VITALS: BP 151/77
== END 2017-02-11 02:53 | disposition home or self-care (01) ==
LOC: M ED 23:51 → EDBD 23:51 → M ED 02-11 02:53
DX: L03.115 Cellulitis of right lower limb (principal); E03.9 Hypothyroidism, unspecified
CPT/HCPCS: 80048; 83605; 85025; 85610; 85730; 87040; 93971; 96365; 96375; 99283; J2543; J2765

== ENCOUNTER → 2017-02-10 | Outpatient (REF) ==
[~2017-02-10] MED LIST changes: +AUGM500T34 PO; +COUM; +COUM10TA PO; +COUM2.5T17 PO; +MORP15TASA PO; +PERC5TAB12 PO
[2017-02-10 13:48] LABS: MEAN CORPUSCULAR HEMOGLOBIN 30.4 pg (27.0-33.0); MEAN CORPUSCULAR HGB CONC 33.1 g/dl (32.0-36.5); RED CELL DISTRIBUTION WIDTH 12.9 % (11.5-14.5); WHITE BLOOD COUNT 7.9 K/mm3 (4.0-10.0)
== END ==
PROVIDERS: ATTEND Internal Medicine
DX: Z96.651 Presence of right artificial knee joint (principal)

== ENCOUNTER → 2017-02-14 | Outpatient (REF) ==
[~2017-02-14] MED LIST changes: +AUGM500T34 PO
[2017-02-14 12:05] LABS: MEAN CORPUSCULAR HEMOGLOBIN 30.1 pg (27.0-33.0); MEAN CORPUSCULAR HGB CONC 33.5 g/dl (32.0-36.5); MEAN CORPUSCULAR VOLUME 89.7 fl (80.0-96.0); WHITE BLOOD COUNT 9.5 K/mm3 (4.0-10.0)
[2017-02-14 12:46] LABS: ANION GAP 8 MEQ/L (8-16); BLOOD UREA NITROGEN 17 MG/DL (7-18); CALCIUM LEVEL 9.2 MG/DL (8.8-10.2); CARBON DIOXIDE LEVEL 25 MEQ/L (21-32); CHLORIDE LEVEL 104 MEQ/L (98-107); CREATININE FOR GFR 0.77 MG/DL (0.55-1.02); GLOMERULAR FILTRATION RATE > 60.0 (>32); GLUCOSE, FASTING 74 MG/DL (83-110); POTASSIUM SERUM 4.5 MEQ/L (3.5-5.1); SODIUM LEVEL 137 MEQ/L (136-145)
[2017-02-14 16:47] LABS: URIC ACID 6.6 MG/DL (2.6-6.0)
--- NOTE | 2017-02-14 18:31 | REP ---
RIGHT FOOT SERIES: Two view of the right foot are performed. I see no definite acute fracture or dislocation. There is mild calcification within the distal end of the Achilles tendon. A metallic screw is seen in the first metatarsal. IMPRESSION: No definite acute fracture or dislocation on this limited two view series. Signed by Quinton Connolly MD 02/15/2017 05:07 P
== END ==
PROVIDERS: ATTEND Internal Medicine
DX: M79.671 Pain in right foot (principal)

== ENCOUNTER → 2017-02-28 | Outpatient (REF) ==
--- NOTE | 2017-02-28 16:32 | REP ---
RIGHT FOOT, TWO VIEWS: Two views of the right foot are performed. COMPARISON: 02/14/2017. Metallic screws again seen in the distal aspect of the first metatarsal. No acute fracture or dislocation is seen. There is mild posterior and inferior calcaneal spurring. There is mild joint space narrowing and subchondral sclerosis at the first metatarsal phalangeal joint. IMPRESSION: Degenerative changes. No acute fracture or other acute finding compared to prior study of 02/14/2017. Signed by Quinton Connolly MD 02/28/2017 04:50 P
[2017-02-28 17:23] LABS: MEAN CORPUSCULAR HEMOGLOBIN 29.8 pg (27.0-33.0); MEAN CORPUSCULAR HGB CONC 32.7 g/dl (32.0-36.5); MEAN CORPUSCULAR VOLUME 91.1 fl (80.0-96.0); RED CELL DISTRIBUTION WIDTH 12.9 % (11.5-14.5); WHITE BLOOD COUNT 9.4 K/mm3 (4.0-10.0)
== END ==
PROVIDERS: ATTEND Internal Medicine
DX: M79.671 Pain in right foot (principal); M25.471 Effusion, right ankle

== ENCOUNTER → 2017-03-08 | Outpatient (REF) ==
[2017-03-08 12:04] LABS: MEAN CORPUSCULAR HEMOGLOBIN 29.9 pg (27.0-33.0); MEAN CORPUSCULAR HGB CONC 33.4 g/dl (32.0-36.5); MEAN CORPUSCULAR VOLUME 89.6 fl (80.0-96.0); RED CELL DISTRIBUTION WIDTH 12.9 % (11.5-14.5); WHITE BLOOD COUNT 5.3 K/mm3 (4.0-10.0)
[2017-03-08 12:39] LABS: ANION GAP 12 MEQ/L (8-16); BLOOD UREA NITROGEN 16 MG/DL (7-18); CALCIUM LEVEL 8.9 MG/DL (8.8-10.2); CARBON DIOXIDE LEVEL 25 MEQ/L (21-32); CHLORIDE LEVEL 105 MEQ/L (98-107); CREATININE FOR GFR 0.74 MG/DL (0.55-1.02); GLOMERULAR FILTRATION RATE > 60.0 (>32); GLUCOSE, FASTING 93 MG/DL (83-110); POTASSIUM SERUM 4.1 MEQ/L (3.5-5.1); SODIUM LEVEL 142 MEQ/L (136-145); URIC ACID 6.6 MG/DL (2.6-6.0)
== END ==
PROVIDERS: ATTEND Internal Medicine
DX: Z96.651 Presence of right artificial knee joint (principal)

== ENCOUNTER → 2017-03-24 | Outpatient (REF) | payer MEDICARE | LOC: M LAB REF 12:33 | PROVIDERS: ATTEND Internal Medicine | DX: M10.071 Idiopathic gout, right ankle and foot (principal) ==

== ENCOUNTER → 2017-06-07 | Outpatient (CLI) | payer MEDICARE ==
--- NOTE | 2017-06-07 17:26 | REPMRS ---
Patient History The patient states she had a clinical breast exam in 06/2017. Patient is postmenopausal and has history of endometrial cancer at age 75. Family history of prostate cancer in father at age 50 or over and prostate cancer in paternal uncle at age 50 or over. Digital Woman Screen Mammo: June 07, 2017 - Exam #: [id number] Bilateral CC and MLO view(s) were taken. Technologist: Dena Paz, Technologist Prior study comparison: June 01, 2016, digital woman screen mammo performed at [facility]. May 20, 2015, digital woman screen mammo performed at [facility]. May 15, 2014, digital woman screen mammo performed at [facility]. May 15, 2013, digital woman screen mammo performed at [facility]. FINDINGS: The breast tissue is almost entirely fat. There has been no change in the appearance of the mammogram from the prior studies. There is no interval development of dominant mass, areas of architectural distortion, or clustered microcalcification typical of malignancy. There are scattered, small, benign calcifications of doubtful clinical significance. No significant changes when compared with prior studies. ASSESSMENT: BI-RADS/ACR category 2 mammogram. Benign finding(s). Recommendation Routine screening mammogram in 1 year. A. Negative x-ray reports should not delay biopsy if a dominant or clinically suspicious mass is present. B. Four to eight percent of cancers are not identified by mammography. C. Adenosis and dense breast may obscure an underlying neoplasm.(for women over age 40). This mammogram was interpreted with the aid of an FDA-approved computer-aided dectection system. Electronically Signed By: Chuy Tejeda MD 06/07/17 [id number]
== END ==
LOC: M WHC 13:35
PROVIDERS: ATTEND Nurse Practitioner Adult Health
DX: Z12.31 Encounter for screening mammogram for malignant neoplasm of breast (principal); E65 Localized adiposity; Z78.0 Asymptomatic menopausal state

== ENCOUNTER → 2018-01-15 | Outpatient (REF) | payer MEDICARE ==
[2018-01-15 18:01] LABS: APPEARANCE, URINE CLOUDY (CLEAR); BACTERIA, URINE AUTO NEGATIVE (NEGATIVE); BILIRUBIN, URINE AUTO NEGATIVE (NEGATIVE); BLOOD, URINE BLOOD 3+ (NEGATIVE); COLOR, URINE YELLOW (YELLOW); GLUCOSE, URINE (UA) AUTO NEGATIVE (NEGATIVE); KETONE, URINE AUTO NEGATIVE (NEGATIVE); LEUKOCYTE ESTERASE, URINE AUTO 1+ (NEGATIVE); MUCUS, URINE SMALL (NEGATIVE); NITRITE, URINE AUTO NEGATIVE (NEGATIVE); PROTEIN, URINE AUTO 1+ mg/dL (NEGATIVE); RBC, URINE AUTO TNTC /HPF (0-3); SPECIFIC GRAVITY URINE AUTO 1.014 (1.002-1.035); SQUAMOUS EPITHELIAL CELL UR AU 3 /HPF (0-6); UROBILINOGEN, URINE AUTO 0.2 mg/dL (0.0-2.0); WBC, URINE AUTO 14 /HPF (0-3)
== END ==
LOC: M LAB REF 17:07
DX: R31.9 Hematuria, unspecified (principal)
CPT/HCPCS: 81001

== ENCOUNTER 2018-03-21 06:38 | Day surgery (SDC) | payer MEDICARE ==
[~2018-03-21 06:38] MED LIST changes: +ACETAMINOPHEN 325 MG TAB PO; -ALEV220C2 PO; -AMBI5TAB PO; -AUGM500T34 PO; -COUM; -COUM10TA PO; -COUM2.5T17 PO; -LEVO100T5 PO; -MORP15TASA PO; -MYRB25TA PO; -PERC5TAB12 PO; -ROPI0.25 PO; -VITA200015 PO
[2018-03-21] MEDS ORDERED: PHENYLEPHRINE HCL 10 % OPHTH. SOL 5ML OS (07:00)
[2018-03-21] MEDS ORDERED: MIDAZOLAM INJ 2 MG/2 ML VIAL (J2250) As Ordered (07:02)
[2018-03-21] MEDS ORDERED: fentaNYL 100 MCG/2 ML INJECTION (J3010) As Ordered (07:03)
[2018-03-21] MEDS: PHENYLEPHRINE 2.5% OPHTH SOL 2ML OS (07:16)
[2018-03-21] MEDS: CYCLOPENTOLATE 2% OPHTH SOLN 2ML BTL OS (07:16)
[2018-03-21] MEDS: TROPICAMIDE 1% OPHTH SOLN 2ML OS (07:17)
[2018-03-21] MEDS: LIDOCAINE 3.5 % 1ML OPHTH TOPICAL GEL OU (07:17)
[2018-03-21] MEDS: OFLOXACIN 0.3 % (OCUFLOX) OPTH SOL 5ML OS (07:17)
[2018-03-21] MEDS: POVIDONE-IODINE 5% OPHTH PREP SOL 30ML As Ordered (08:38)
[2018-03-21] MEDS: LIDOCAINE 1% SDV 5 ML VIAL As Ordered (08:41)
[2018-03-21] MEDS: TRIAMCINOLONE PRES FR 40 MG/ML 1ML(TRIESENCE)(OR EYE ONLY)(J3300 PER 1MG) As Ordered (08:42)
[2018-03-21] MEDS: HEALON DUET (HEALON 10MG/ML 0.55ML & HEALON ENDOCOAT 30MG/ML 0.85ML) As Ordered (08:43)
[2018-03-21] MEDS: BSS with VANC/TOB/EPI for EYE CASES IR (08:43)
[2018-03-21] MEDS: ACETYLCHOLINE OPHTH SOLN 1% 2ML (MIOCHOL-E) As Ordered (08:43)
[2018-03-21] MEDS: MOXIFLOXACIN IN BSS 0.25MG/0.25ML INTRACAMERAL INJ (OR EYE ONLY)(J2280) As Ordered (08:46)
[2018-03-21] MEDS ORDERED: AcetaZOLAMIDE 500 MG ER CAP PO (09:00)
[2018-03-21] MEDS ORDERED: TRIMETHOBENZAMIDE 300 MG CAP PO (09:00)
== END 2018-03-21 09:35 | disposition home or self-care (01) ==
LOC: M SDC 09:35
DX: H25.012 Cortical age-related cataract, left eye (principal); E03.9 Hypothyroidism, unspecified; K58.9 Irritable bowel syndrome, unspecified; R06.02 Shortness of breath; M12.9 Arthropathy, unspecified; M54.9 Dorsalgia, unspecified; M79.1 Myalgia; F32.9 Major depressive disorder, single episode, unspecified; R06.83 Snoring; G47.33 Obstructive sleep apnea (adult) (pediatric); E66.09 Other obesity due to excess calories; Z68.41 Body mass index [BMI] 40.0-44.9, adult; Z88.1 Allergy status to other antibiotic agents; Z88.5 Allergy status to narcotic agent; Z88.7 Allergy status to serum and vaccine; Z79.899 Other long term (current) drug therapy; Z90.710 Acquired absence of both cervix and uterus; Z85.41 Personal history of malignant neoplasm of cervix uteri; Z87.440 Personal history of urinary (tract) infections; Z87.891 Personal history of nicotine dependence; Z96.651 Presence of right artificial knee joint
CPT/HCPCS: 66984

== ENCOUNTER → 2018-09-17 | Outpatient (CLI) | payer MEDICARE ==
[~2018-09-17] MED LIST changes: -ACETAMINOPHEN 325 MG TAB PO; +ALEV220C2 PO; +AMBI5TAB PO; +AUGM500T34 PO; +BIOT1CAP2 PO; +COUM; +COUM10TA PO; +COUM2.5T17 PO; +LEVO100T5 PO; +MORP15TASA PO; +MYRB25TA PO; +PERC5TAB12 PO; +ROPI0.253 PO; +VITA200015 PO
--- NOTE | 2018-09-17 14:43 | REPMRS ---
Patient History The patient states she had a clinical breast exam in 04/2018. Patient is postmenopausal and has history of endometrial cancer at age 75. Family history of prostate cancer at age 50 or over in father, prostate cancer at age 50 or over in paternal uncle. No Hormone Replacement Therapy 3D TOMOSYNTHESIS WAS PERFORMED. Digital Woman Screen Mammo: September 17, 2018 - Exam #: [id number] Bilateral CC and MLO view(s) were taken. Technologist: Dena Paz, Technologist Prior study comparison: June 07, 2017, digital woman screen mammo performed at [facility]. June 01, 2016, digital woman screen mammo performed at [facility]. FINDINGS: There are scattered fibroglandular densities. There has been no change in the appearance of the mammogram from the prior studies. There is a mild amount of residual fibroglandular tissue which is fairly symmetric. There is no interval development of dominant mass, architectural distortion, or clustered microcalcification suggestive of malignancy. Assessment: BI-RADS/ACR category 1 mammogram. Negative Mammogram. Recommendation Routine screening mammogram in 1 year (for women over age 40). This mammogram was interpreted with the aid of an FDA-approved computer-aided dectection system. Electronically Signed By: Quinton Connolly MD 09/17/18 [id number]
== END ==
LOC: M WHC 12:53
PROVIDERS: ATTEND Internal Medicine
DX: Z12.31 Encounter for screening mammogram for malignant neoplasm of breast (principal)

== ENCOUNTER → 2018-10-15 | Outpatient (REF) | payer MEDICARE ==
[2018-10-15 18:54] LABS: AMYLASE 40 U/L (25-115); LIPASE 125 U/L (73-393)
== END ==
LOC: M LAB REF 16:49
PROVIDERS: ATTEND Nurse Practitioner Adult Health
DX: R19.7 Diarrhea, unspecified (principal)

== ENCOUNTER → 2018-10-22 | Outpatient (REF) | payer MEDICARE | LOC: M LAB REF 15:14 | PROVIDERS: ATTEND Nurse Practitioner Adult Health | DX: R19.7 Diarrhea, unspecified (principal) ==

== ENCOUNTER 2019-02-25 08:35 | Day surgery (SDC) | payer MEDICARE ==
[~2019-02-25] VITALS: Ht 165.1 cm; Wt 104.2 kg
[~2019-02-25 08:35] MED LIST changes: +CHOL4PW PO; +LEVO125T4 PO; +MULTCAP PO; +MYRB50TA PO; +NS 1,000 ML IV ONE; +VESI5TAB2 PO
[2019-02-25] MEDS ORDERED: LIDOCAINE 2% INJ 100 MG/5 ML SDV (FOR ANES.) As Ordered ONE (09:16)
[2019-02-25] MEDS ORDERED: propofoL 200 MG/20 ML VIAL As Ordered ONE ×3 (09:16→09:57)
--- NOTE | 2019-02-25 10:08 | ROOR ---
Patient Name: Bailee Kovacs Procedure Date: 02/25/2019 9:33 AM Date of : 1935 Age: 83 Room: [facility] Gender: Female Note Status: Finalized Procedure: Colonoscopy Indications: Change in bowel habits, Diarrhea Providers: Osorio LIPSCOMB MD Referring MD: SHAYE GUTIERREZ JR, MD Requesting Provider: Medicines: Monitored Anesthesia Care Complications: No immediate complications. Procedure: Pre-Anesthesia Assessment: - The heart rate, respiratory rate, oxygen saturations, blood pressure, adequacy of pulmonary ventilation, and response to care were monitored throughout the procedure. The Colonoscope was introduced through the anus and advanced to 5 cm into the ileum. The colonoscopy was performed without difficulty. The patient tolerated the procedure well. The quality of the bowel preparation was good. Findings: The digital rectal exam findings include decreased sphincter tone. Four sessile polyps were found in the splenic flexure and hepatic flexure. The polyps were 4 to 5 mm in size. These polyps were removed with a cold snare. Resection and retrieval were complete. Multiple medium-mouthed diverticula were found in the sigmoid colon. Internal hemorrhoids were found during retroflexion. The exam was otherwise normal throughout the examined colon. The terminal ileum appeared normal. Biopsies for histology were taken with a cold forceps from the entire colon for evaluation of microscopic colitis. Impression: - Decreased sphincter tone found on digital rectal exam. - Four 4 to 5 mm polyps at the splenic flexure and at the hepatic flexure, removed with a cold snare. Resected and retrieved. - Moderate diverticulosis in the sigmoid colon. - Samll Internal hemorrhoids. - The colon is otherwise normal. - The terminal ileum x 5 cm is normal. - Biopsies were taken with a cold forceps from the entire colon for evaluation of microscopic colitis. Recommendation: - Telephone endoscopist for pathology results in 2 weeks. - Repeat colonoscopy in 3 - 5 years for surveillance based on pathology results. - Await pathology results. Osorio Lipscomb MD Osorio LIPSCOMB MD 02/25/2019 10:08:18 AM Electronically signed by Osorio LIPSCOMB MD Number of Addenda: 0 Note Initiated On: 02/25/2019 9:33 AM Estimated Blood Loss: Estimated blood loss: none.
[2019-02-25 10:34] VITALS: BP 134/79
== END 2019-02-25 10:47 | disposition home or self-care (01) ==
LOC: M OPP 08:35
PROVIDERS: ATTEND Internal Medicine Gastroenterology
DX: K62.89 Other specified diseases of anus and rectum (principal); D12.3 Benign neoplasm of transverse colon; K64.8 Other hemorrhoids; R19.4 Change in bowel habit; R19.7 Diarrhea, unspecified; K57.30 Diverticulosis of large intestine without perforation or abscess without bleeding; G47.30 Sleep apnea, unspecified; E03.9 Hypothyroidism, unspecified; Z79.899 Other long term (current) drug therapy; Z88.0 Allergy status to penicillin; Z88.1 Allergy status to other antibiotic agents; Z88.5 Allergy status to narcotic agent; Z88.7 Allergy status to serum and vaccine

== ENCOUNTER → 2019-03-27 | Outpatient (REF) | payer MEDICARE ==
[~2019-03-27] MED LIST changes: -NS 1,000 ML IV ONE
[2019-03-27 18:26] LABS: PLATELET COUNT, AUTOMATED 250 10^3/uL (150-450)
[2019-03-27 18:38] LABS: PARTIAL THROMBOPLASTIN TIME 29.9 SECONDS (25.0-38.4); PROTHROMBIN TIME 12.9 SECONDS (11.8-14.0)
== END ==
LOC: M LABDRAW1 18:19
PROVIDERS: ATTEND Physician Assistant
DX: Z01.812 Encounter for preprocedural laboratory examination (principal); M51.37 Other intervertebral disc degeneration, lumbosacral region; Z79.899 Other long term (current) drug therapy

== ENCOUNTER → 2019-09-17 | Outpatient (CLI) | payer MEDICARE ==
--- NOTE | 2019-09-17 15:35 | REPMRS ---
Patient History The patient states she has not had a clinical breast exam in over a year. Family history of prostate cancer at age 50 or over in father, prostate cancer at age 50 or over in paternal uncle. No Hormone Replacement Therapy 3D TOMOSYNTHESIS WAS PERFORMED. The [facility] lifetime risk for breast cancer is 1.2%. Digital Woman Screen Mammo: September 17, 2019 - Exam #: [id number] Bilateral CC and MLO view(s) were taken. Technologist: RT Jason Prior study comparison: September 17, 2018, bilateral digital woman screen mammo performed at [facility]. June 07, 2017, digital woman screen mammo performed at [facility]. FINDINGS: There are scattered fibroglandular densities. There has been no change in the appearance of the mammogram from the prior studies. There is a mild amount of residual fibroglandular tissue which is fairly symmetric. There is no interval development of dominant mass, architectural distortion, or clustered microcalcification suggestive of malignancy. Assessment: BI-RADS/ACR category 1 mammogram. Negative Mammogram. Recommendation Routine screening mammogram in 1 year (for women over age 40). This mammogram was interpreted with the aid of an FDA-approved computer-aided dectection system. Electronically Signed By: Quinton Connolly MD 09/17/19 [id number]
== END ==
LOC: M WHC 12:50
PROVIDERS: ATTEND Internal Medicine
DX: Z12.31 Encounter for screening mammogram for malignant neoplasm of breast (principal); Z80.42 Family history of malignant neoplasm of prostate

== ENCOUNTER → 2020-01-02 | Outpatient (CLI) | payer MEDICARE | LOC: M LABSMTC 11:17 | PROVIDERS: ATTEND Physical Medicine & Rehabilitation | DX: Z03.818 Encounter for observation for suspected exposure to other biological agents ruled out (principal); Z11.59 Encounter for screening for other viral diseases ==

== ENCOUNTER → 2020-01-18 | Outpatient (CLI) | payer MEDICARE | LOC: M LABSMTC 09:27 | PROVIDERS: ATTEND Physical Medicine & Rehabilitation | DX: Z11.59 Encounter for screening for other viral diseases (principal); Z20.828 Contact with and (suspected) exposure to other viral communicable diseases ==

== ENCOUNTER → 2020-09-22 | Outpatient (CLI) | payer MEDICARE ==
--- NOTE | 2020-09-22 15:36 | REPMRS ---
Patient History The patient states she has not had a clinical breast exam in over a year. Patient is postmenopausal and has history of endometrial cancer at age 75. Family history of prostate cancer at age 50 or over in father, prostate cancer at age 50 or over in paternal uncle. No Hormone Replacement Therapy Digital Woman Screen Mammo: September 22, 2020 - Exam #: [id number] Bilateral CC and MLO view(s) were taken. Technologist: Dena Paz, Technologist Prior study comparison: September 17, 2019, bilateral digital woman screen mammo performed at [facility]. September 17, 2018, bilateral digital woman screen mammo performed at [facility]. June 07, 2017, digital woman screen mammo performed at [facility]. FINDINGS: The breast tissue is almost entirely fat. The [employer] volumetric breast density category is: A. There has been no change in the appearance of the mammogram from the prior studies. There is no interval development of dominant mass, architectural distortion, or grouped microcalcification typical of malignancy. 3-D tomosynthesis shows no additional findings. Assessment: BI-RADS/ACR category 1 mammogram. Negative Mammogram. Recommendation Routine screening mammogram of both breasts in 1 year (for women over age 40). This patient's [facility] Lifetime Breast Cancer RIsk is estimated at 0.8 %. This mammogram was interpreted with the aid of an FDA-approved computer-aided dectection system. Electronically Signed By: Donavan Espinosa MD 09/22/20 [id number]
== END ==
LOC: M WHC 13:53
PROVIDERS: ATTEND Internal Medicine
DX: Z12.31 Encounter for screening mammogram for malignant neoplasm of breast (principal)

== ENCOUNTER → 2021-02-11 | Outpatient (CLI) | payer MEDICARE ==
--- NOTE | 2021-02-11 15:01 | REP ---
INDICATION: SOB. COMPARISON: 01/24/2017 TECHNIQUE: Two views FINDINGS: The lungs are clear. The heart is not enlarged. There is no failure. The mediastinum, pleural surfaces and bony structures unremarkable. IMPRESSION: No active process. No interval change. <Electronically signed by Wil Garrison > 02/11/21 [id number]
== END ==
LOC: M PLAIMG 14:40
PROVIDERS: ATTEND Nurse Practitioner Adult Health
DX: R06.02 Shortness of breath (principal)

== ENCOUNTER → 2021-04-09 | Outpatient (REF) | payer MEDICARE ==
[2021-04-12 12:01] LABS: FOLATE 7.4 NG/ML
== END ==
LOC: M LAB REF 16:20
PROVIDERS: ATTEND Internal Medicine
DX: R26.89 Other abnormalities of gait and mobility (principal)

== ENCOUNTER → 2021-10-06 | Outpatient (CLI) | payer MEDICARE | LOC: M LABSMTC 11:28 | PROVIDERS: ATTEND Family Medicine | DX: Z11.52 Encounter for screening for COVID-19 (principal) ==

== ENCOUNTER → 2021-11-08 | Outpatient (CLI) | payer MEDICARE ==
[~2021-11-08] MED LIST changes: +E-Z-GAS II EFFERVESCENT PACKET (SODIUM BICARB./CITRIC ACID/SIMETHICONE) As Ordered ONE; +E-Z-HD 98% w/w 340GM SUSP BTL As Ordered ONE; +E-Z-PAQUE 96% w/w SUSP 176GM BTL As Ordered ONE
== END ==
LOC: M RAD 08:07
PROVIDERS: ATTEND Internal Medicine
DX: R13.10 Dysphagia, unspecified (principal); K21.9 Gastro-esophageal reflux disease without esophagitis; M25.78 Osteophyte, vertebrae

== ENCOUNTER → 2022-04-15 | Outpatient (CLI) | payer MEDICARE ==
[~2022-04-15] MED LIST changes: -E-Z-GAS II EFFERVESCENT PACKET (SODIUM BICARB./CITRIC ACID/SIMETHICONE) As Ordered ONE; -E-Z-HD 98% w/w 340GM SUSP BTL As Ordered ONE; -E-Z-PAQUE 96% w/w SUSP 176GM BTL As Ordered ONE; +ISOVUE-300 61% 50ML VIAL As Ordered ONE; +LIDOCAINE 1% MDV 20ML VIAL As Ordered ONE; +methylPREDNISolone SUSP 40MG/ML 1ML VIAL (DEPO MEDROL) As Ordered ONE
== END ==
LOC: M RAD 12:16
PROVIDERS: ATTEND Physician Assistant Surgical
DX: M16.0 Bilateral primary osteoarthritis of hip (principal)
CPT/HCPCS: 20610; 76000; J1030; Q9967

== ENCOUNTER → 2022-05-28 | Outpatient (CLI) | payer MEDICARE ==
[~2022-05-28] MED LIST changes: -ISOVUE-300 61% 50ML VIAL As Ordered ONE; -LIDOCAINE 1% MDV 20ML VIAL As Ordered ONE; -methylPREDNISolone SUSP 40MG/ML 1ML VIAL (DEPO MEDROL) As Ordered ONE
== END ==
LOC: M RAD 10:38
PROVIDERS: ATTEND Physician Assistant Surgical
DX: M51.37 Other intervertebral disc degeneration, lumbosacral region (principal); M51.26 Other intervertebral disc displacement, lumbar region; M51.27 Other intervertebral disc displacement, lumbosacral region

== ENCOUNTER → 2022-06-08 | Outpatient (CLI) | payer MEDICARE ==
[2022-06-08 15:35] LABS: BASO # 0.1 10^3/uL (0.0-0.2); BASO % 0.9 % (0.0-1.0); EOS # 0.4 10^3/uL (0.0-0.5); EOS % 4.5 % (0.0-3.0); HEMATOCRIT 44.8 % (36.0-47.0); HEMOGLOBIN 14.4 g/dl (12.0-15.5); MEAN CORPUSCULAR HEMOGLOBIN 29.8 pg (27.0-33.0); MEAN CORPUSCULAR HGB CONC 32.1 g/dl (32.0-36.5); MEAN CORPUSCULAR VOLUME 92.6 fl (80.0-96.0); MONO % 12.1 % (2.0-8.0); NEUTROPHILS # 4.5 10^3/uL (1.5-8.5); NEUTROPHILS % 57.1 % (36.0-66.0); PLATELET COUNT, AUTOMATED 273 10^3/uL (150-450); RED BLOOD COUNT 4.84 10^6/uL (4.00-5.40); WHITE BLOOD COUNT 7.8 10^3/uL (4.0-10.0)
[2022-06-08 15:48] LABS: URIC ACID 8.5 MG/DL (3.1-7.8)
[2022-06-08 15:51] LABS: RHEUMATOID FACTOR QUANT < 3.5 IU/ML (<14)
[2022-06-08 16:23] LABS: ERYTHROCYTE SEDIMENTATION RATE 11 mm/hr (0-30)
== END ==
LOC: M PLALAB 14:33
PROVIDERS: ATTEND Physician Assistant Surgical
DX: M47.817 Spondylosis without myelopathy or radiculopathy, lumbosacral region (principal)

== ENCOUNTER → 2022-07-08 | Outpatient (CLI) | payer MEDICARE ==
[2022-07-08 15:32] LABS: PLATELET COUNT, AUTOMATED 247 10^3/uL (150-450)
[2022-07-08 15:58] LABS: INR 0.91; PROTHROMBIN TIME 12.5 SECONDS (12.5-14.5)
[2022-07-08 15:59] LABS: PARTIAL THROMBOPLASTIN TIME 28.6 SECONDS (24.8-34.2)
[2022-07-08 16:29] LABS: COLLAGEN EPINEPHRINE 95 SECONDS (74-162)
== END ==
LOC: M PLALAB 13:26
PROVIDERS: ATTEND Physician Assistant Surgical
DX: M47.817 Spondylosis without myelopathy or radiculopathy, lumbosacral region (principal)

== ENCOUNTER 2022-08-22 16:16 | Emergency (ER) | payer MEDICARE ==
[~2022-08-22] VITALS: Ht 165.1 cm; Wt 104.5 kg
[2022-08-22] MEDS ORDERED: ACETAMINOPHEN TAB 650MG DOSE (2X325MG) PO ONE (20:35)
[2022-08-22] MEDS ORDERED: KETOROLAC 30 MG/ML 1ML VIAL IM ONE (20:35)
[2022-08-22 22:36] VITALS: BP 134/65
[2022-08-22] MEDS ORDERED: CYCL5TAB PO (23:01)
[2022-08-22] MEDS ORDERED: MELO7.5T35 PO (23:01)
== END 2022-08-22 23:07 | disposition home or self-care (01) ==
LOC: M ED 16:16
DX: M25.551 Pain in right hip (principal); M19.90 Unspecified osteoarthritis, unspecified site; M54.16 Radiculopathy, lumbar region; M51.9 Unspecified thoracic, thoracolumbar and lumbosacral intervertebral disc disorder; K58.9 Irritable bowel syndrome, unspecified; F32.9 Major depressive disorder, single episode, unspecified; E03.9 Hypothyroidism, unspecified; Z79.890 Hormone replacement therapy; Z79.899 Other long term (current) drug therapy; Z88.1 Allergy status to other antibiotic agents; Z88.7 Allergy status to serum and vaccine; Z88.8 Allergy status to other drugs, medicaments and biological substances
CPT/HCPCS: 73502; 96372; 99283; J1885

== ENCOUNTER → 2022-12-14 | Outpatient (CLI) | payer MEDICARE ==
[~2022-12-14] MED LIST changes: +CYCL5TAB PO; +MELO7.5T35 PO
== END ==
LOC: M WUC 11:28
PROVIDERS: ATTEND Nurse Practitioner Family
DX: M54.9 Dorsalgia, unspecified (principal); M47.817 Spondylosis without myelopathy or radiculopathy, lumbosacral region; M85.88 Other specified disorders of bone density and structure, other site

== ENCOUNTER → 2023-11-14 | Outpatient (CLI) | payer MEDICARE ==
[~2023-11-14] MED LIST changes: -ROPI0.253 PO; +ROPI5TAB19 PO
== END ==
LOC: M WHC 13:05
PROVIDERS: ATTEND Internal Medicine
DX: Z12.31 Encounter for screening mammogram for malignant neoplasm of breast (principal)

== ENCOUNTER → 2024-03-18 | Outpatient (CLI) | payer MEDICARE ==
[~2024-03-18] MED LIST changes: +ISOVUE-300 61% 100ML VIAL As Ordered ONE; +LIDOCAINE 1% MDV 20ML VIAL As Ordered ONE; +methylPREDNISolone SUSP 40MG/ML 1ML VIAL (DEPO MEDROL) As Ordered ONE
== END ==
LOC: M RAD 13:48
PROVIDERS: ATTEND Physician Assistant
DX: M16.11 Unilateral primary osteoarthritis, right hip (principal)
CPT/HCPCS: 20610; 77002; J1010; Q9967

== ENCOUNTER → 2024-04-25 | Outpatient (REF) | payer MEDICARE ==
[~2024-04-25] MED LIST changes: -ISOVUE-300 61% 100ML VIAL As Ordered ONE; -LIDOCAINE 1% MDV 20ML VIAL As Ordered ONE; -methylPREDNISolone SUSP 40MG/ML 1ML VIAL (DEPO MEDROL) As Ordered ONE
== END ==
LOC: M LAB REF 16:36
PROVIDERS: ATTEND Student in an Organized Health Care Education/Training Program
DX: R30.0 Dysuria (principal)

== ENCOUNTER → 2024-05-13 | Outpatient (CLI) | payer MEDICARE ==
[~2024-05-13] MED LIST changes: -CYCL5TAB PO; +CYCL5TAB4 PO
== END ==
LOC: M RAD 10:46
PROVIDERS: ATTEND Physician Assistant
DX: M51.361 Other intervertebral disc degeneration, lumbar region with lower extremity pain only (principal); M48.56XA Collapsed vertebra, not elsewhere classified, lumbar region, initial encounter for fracture; M47.816 Spondylosis without myelopathy or radiculopathy, lumbar region; M48.061 Spinal stenosis, lumbar region without neurogenic claudication

== ENCOUNTER → 2024-08-12 | Outpatient (CLI) | payer MEDICARE | LOC: M RAD 12:59 | PROVIDERS: ATTEND Internal Medicine | DX: Z87.442 Personal history of urinary calculi (principal); N28.89 Other specified disorders of kidney and ureter ==

== ENCOUNTER → 2024-09-03 | Outpatient (CLI) | payer MEDICARE ==
[~2024-09-03] MED LIST changes: +ISOVUE-370 76% 100ML VIAL ONE
== END ==
LOC: M PLAIMG 12:00
PROVIDERS: ATTEND Internal Medicine
DX: D35.01 Benign neoplasm of right adrenal gland (principal); N28.1 Cyst of kidney, acquired; K76.0 Fatty (change of) liver, not elsewhere classified; K57.30 Diverticulosis of large intestine without perforation or abscess without bleeding; K42.9 Umbilical hernia without obstruction or gangrene
CPT/HCPCS: 74178; Q9967

== ENCOUNTER → 2024-09-17 | Outpatient (REF) | payer MEDICARE ==
[~2024-09-17] MED LIST changes: -ISOVUE-370 76% 100ML VIAL ONE
[2024-09-17 17:20] LABS: APPEARANCE, URINE CLEAR (CLEAR); BACTERIA, URINE AUTO NEGATIVE (NEGATIVE); BILIRUBIN, URINE AUTO NEGATIVE (NEGATIVE); BLOOD, URINE BLOOD NEGATIVE (NEGATIVE); COLOR, URINE YELLOW (YELLOW); GLUCOSE, URINE (UA) AUTO NEGATIVE (NEGATIVE); KETONE, URINE AUTO NEGATIVE (NEGATIVE); LEUKOCYTE ESTERASE, URINE AUTO NEGATIVE (NEGATIVE); MUCUS, URINE SMALL (NEGATIVE); NITRITE, URINE AUTO NEGATIVE (NEGATIVE); PROTEIN, URINE AUTO NEGATIVE (NEGATIVE); RBC, URINE AUTO 0 /HPF (0-3); SPECIFIC GRAVITY URINE AUTO 1.014 (1.002-1.035); SQUAMOUS EPITHELIAL CELL UR AU 2 /HPF (0-6); UROBILINOGEN, URINE AUTO 0.2 mg/dL (0.0-2.0); WBC, URINE AUTO 0 /HPF (0-3)
== END ==
LOC: M LAB REF 15:12
PROVIDERS: ATTEND Nurse Practitioner Family
DX: N32.81 Overactive bladder (principal); N39.41 Urge incontinence

== ENCOUNTER → 2024-10-28 | Outpatient (REF) | payer MEDICARE ==
[~2024-10-28] MED LIST changes: -AMBI5TAB PO; +MORP-138 PO; -MORP15TASA PO; +ZOLP-532 PO
== END ==
LOC: M LAB REF 14:00
PROVIDERS: ATTEND Internal Medicine
DX: M10.9 Gout, unspecified (principal)

== ENCOUNTER 2025-04-15 07:19 | Day surgery (SDC) | payer MEDICARE ==
[~2025-04-15] VITALS: Ht 165.1 cm; Wt 105.7 kg
[~2025-04-15 07:19] MED LIST changes: +ACET-897 PO; +ALLO100T PO; +ICY5PAD2 TOP
[2025-04-15 10:01] VITALS: TEMP 97.2
[2025-04-15 10:22] VITALS: BP 94/54; O2SAT 96
== END 2025-04-15 10:31 | disposition home or self-care (01) ==
LOC: M OPP 07:19
PROVIDERS: ATTEND Internal Medicine Gastroenterology
DX: K63.5 Polyp of colon (principal); K57.30 Diverticulosis of large intestine without perforation or abscess without bleeding; Z86.0101 Personal history of adenomatous and serrated colon polyps; G47.33 Obstructive sleep apnea (adult) (pediatric); Z88.1 Allergy status to other antibiotic agents; Z88.8 Allergy status to other drugs, medicaments and biological substances; Z88.7 Allergy status to serum and vaccine; Z79.899 Other long term (current) drug therapy

== ENCOUNTER → 2025-05-06 | Outpatient (REF) | payer MEDICARE | LOC: M LAB REF 17:35 | PROVIDERS: ATTEND Internal Medicine | DX: M10.9 Gout, unspecified (principal) ==